=== PATIENT | male | born 1985 | race Asian ===

== ENCOUNTER → 2019-03-17 | Outpatient (CLI) | payer BC ==
[2019-03-19 19:16] LABS: HELICOBACTER PYLORI STOOL AG Positive (Negative)
== END ==
LOC: COL.LAB 09:48
PROVIDERS: Family Medicine
DX: R10.13 Epigastric pain (principal)

== ENCOUNTER → 2019-05-19 | Outpatient (CLI) | payer BC | LOC: ZCOL.LAB 09:44 | DX: K29.70 Gastritis, unspecified, without bleeding (principal) ==